=== PATIENT | female | born 1965 | race Caucasian/White ===

== ENCOUNTER → 2016-12-24 | Outpatient (CLI) | payer MEDICAID ==
[~2016-12-24] MED LIST: ANAPROX DS550 MG PO; ASPIRIN81 M1 PO; B COMPLEX1 EACH PO; CIPRO500 MG PO; DUONEB 3 MG/3 ML3 M1 INH; ESTRACE0.5 MG PO; ESTROGEN PO; HYDROCODONE BIT1 T11 PO; INCIVEK PO; LEVOFLOXACIN500 MG PO; LEVOTHYROXIN0.125 MG PO; LOMOTIL 0.025 M1 TAB PO; MELATONIN5 M1 PO; NAPROSYN500 MG PO; NORCO 5-325 TA1 EACH PO; NORFLEX100 MG PO; OMEPRAZOLE20 MG PO; ORPHENADRINE C100 M1 PO; PEGASYS180 MCG/0. MR; PREDNISONE20 M1 PO; RIBAVIRIN600 MG PO; SYNTHROID0.05 MG PO; VICODIN ES 7501 TAB PO; VITAMIN C1000 M5 PO; VITAMIN D5000 IU PO; ZOFRAN ODT8 MG PO
[2016-12-24 15:34] LABS: FREE T4 1.14 ng/dl (0.76-1.46)
[2016-12-24 15:40] LABS: THYROID STIM HORMONE (HS) 3.12 uIU/ml (0.358-4.75)
== END | disposition home or self-care (01) ==
LOC: LAB 14:37
PROVIDERS: Internal Medicine
DX: E03.9 Hypothyroidism, unspecified (principal)

== ENCOUNTER → 2017-04-28 | Outpatient (CLI) | payer OTHER ==
--- NOTE | ~2017-04-28 | PF ---
[place], [place] PULMONARY FUNCTION TEST [id number] UN[facility] #: [id number] ROOM: DOCTOR: JA JONES MD,MANUEL BIRTHDATE: [birth year] DOS: 04/28/2017 ORDERED BY: Dr. Carli Payan. HISTORY: The patient recorded as a 52-year-old female, height of 62 inches, weight of 190 pounds with BMI 34.8. The testing was done for assessment of bronchial asthma with symptoms of nonproductive cough and rare wheezing. The patient noted 30-pack years of tobacco use for this patient that was discontinued 6 years ago. SPIROMETRY: The FVC was recorded at 2.49 liters, 78% predicted value, mildly decreased without any significant post-bronchodilator improvement. The FEV1 was noted 2.09 liters at 83% predicted value normal. The patient without significant postbronchodilator improvement. Flow volume loop was suggestive of obstructive airway pattern. The patient's lung volumes, thoracic gas volume recorded 70%, residual volume 74%, total lung capacity 87%. Lung volumes were noted normal. The patient's lung diffusion was noted normal at 103%. The patient's airway resistance, passive conductance were noted abnormal with partial improvement after bronchodilator test. FINAL IMPRESSION: The test was noted suggestive of reversible obstructive lung disease as bronchial asthma would be considered. MANUEL PERES MD CM:PFREPORT:PULMONARY FUNCTION TEST [id number] MANUEL JONES MD
== END | disposition home or self-care (01) ==
LOC: CP 08:18
DX: J45.909 Unspecified asthma, uncomplicated (principal)

== ENCOUNTER → 2018-06-17 | Outpatient (CLI) | payer BC ==
[2018-06-17 17:03] LABS: BASO % 0.5 % (0.0-1.0); EOS # 0.1 10*3/uL (0.0-0.4); EOS % 1.7 % (1.0-4.0); HEMATOCRIT 40.6 % (37.0-47.0); HEMOGLOBIN 13.9 g/dl (12.0-16.0); LYMPH # 2.3 10*3/uL (1.3-4.4); LYMPH % 39.7 % (27.0-41.0); MEAN CORPUSCULAR HGB 29.4 pg (27.0-31.0); MEAN CORPUSCULAR HGB CONC 34.2 g/dl (33.0-37.0); MONO # 0.5 10*3/uL (0.1-1.0); MONO % 8.8 % (3.0-9.0); NEUT # 2.9 10*3/uL (2.3-7.9); NEUT % 49.1 % (47.0-73.0); PLATELET COUNT AUTOMATED 253 10*3/uL (130-400); RED BLOOD COUNT 4.72 10*6/uL (4.10-5.10); WHITE BLOOD COUNT 5.9 10*3/uL (4.8-10.8)
[2018-06-17 17:19] LABS: ALBUMIN 3.8 gm/dl (3.1-4.5); ALKALINE PHOSPHATASE 95 U/L (45-117); BUN 12 mg/dl (7-24); CHLORIDE 105 mmol/L (98-107); CHOLESTEROL 221 mg/dL (<200); CREATININE 0.75 mg/dL (0.55-1.02); HDL CHOLESTEROL 41 mg/dl (40-60); LDL CHOLESTEROL 118 mg/dL (9-159); POTASSIUM 3.9 mmol/L (3.5-5.1); SGOT/AST 23 IU/L (3-35); SGPT/ALT 27 U/L (12-78); SODIUM 140 mmol/L (136-145); TOTAL PROTEIN 8.1 gm/dL (6.4-8.2); TRIGLYCERIDES 308 mg/dl (<150); VLDL CHOLESTEROL 62 mg/dL (6-40)
[2018-06-17 17:40] LABS: VITAMIN D, 25-HYDROXY 25.1 ng/mL (30-100)
== END ==
LOC: LAB 16:04
PROVIDERS: Internal Medicine
DX: J44.1 Chronic obstructive pulmonary disease with (acute) exacerbation (principal); J98.01 Acute bronchospasm; B18.2 Chronic viral hepatitis C; E78.1 Pure hyperglyceridemia; R73.9 Hyperglycemia, unspecified; E03.9 Hypothyroidism, unspecified; K74.60 Unspecified cirrhosis of liver; N39.0 Urinary tract infection, site not specified; M15.9 Polyosteoarthritis, unspecified; Z68.33 Body mass index [BMI] 33.0-33.9, adult

== ENCOUNTER → 2018-07-01 | Outpatient (CLI) | payer BC | END | disposition home or self-care (01) | LOC: US 10:30 | DX: R10.11 Right upper quadrant pain (principal); E03.9 Hypothyroidism, unspecified; Z78.0 Asymptomatic menopausal state; Z90.49 Acquired absence of other specified parts of digestive tract; Z85.41 Personal history of malignant neoplasm of cervix uteri; Z86.19 Personal history of other infectious and parasitic diseases; Z90.710 Acquired absence of both cervix and uterus ==

== ENCOUNTER → 2018-07-05 | Outpatient (CLI) | payer BC | END | disposition home or self-care (01) | LOC: MAMMO 16:18 | DX: Z12.31 Encounter for screening mammogram for malignant neoplasm of breast (principal) ==

== ENCOUNTER → 2019-07-28 | Outpatient (CLI) | payer BC, OTHER ==
[2019-07-28 09:17] LABS: BASO % 0.5 % (0.0-1.0); EOS # 0.1 10*3/uL (0.0-0.4); EOS % 1.3 % (1.0-4.0); HEMATOCRIT 41.7 % (37.0-47.0); HEMOGLOBIN 14.2 g/dl (12.0-16.0); LYMPH # 1.8 10*3/uL (1.3-4.4); LYMPH % 29.2 % (27.0-41.0); MEAN CELL VOLUME 87.2 fl (81.0-99.0); MEAN CORPUSCULAR HGB 29.7 pg (27.0-31.0); MEAN CORPUSCULAR HGB CONC 34.1 g/dl (33.0-37.0); MEAN PLATELET VOLUME 11.2 fl (9.6-12.3); MONO # 0.5 10*3/uL (0.1-1.0); MONO % 8.8 % (3.0-9.0); NEUT # 3.7 10*3/uL (2.3-7.9); NEUT % 59.9 % (47.0-73.0); PLATELET COUNT AUTOMATED 254 10*3/uL (130-400); RED BLOOD COUNT 4.78 10*6/uL (4.10-5.10); RED CELL DISTRI WIDTH 11.9 % (0-14.5); WHITE BLOOD COUNT 6.1 10*3/uL (4.8-10.8)
[2019-07-28 09:51] LABS: ALBUMIN 3.9 gm/dl (3.1-4.5); ALKALINE PHOSPHATASE 99 U/L (45-117); BUN 13 mg/dl (7-24); CHLORIDE 107 mmol/L (98-107); CHOLESTEROL 220 mg/dL (<200); CREATININE 0.97 mg/dL (0.55-1.02); FREE T4 1.12 ng/dl (0.76-1.46); HDL CHOLESTEROL 38 mg/dl (40-60); LDL CHOLESTEROL 131 mg/dL (9-159); SGOT/AST 20 IU/L (3-35); SGPT/ALT 32 U/L (12-78); SODIUM 141 mmol/L (136-145); TOTAL PROTEIN 7.8 gm/dL (6.4-8.2); TRIGLYCERIDES 257 mg/dl (<150); VLDL CHOLESTEROL 51 mg/dL (6-40)
[2019-07-28 10:44] LABS: VITAMIN D, 25-HYDROXY 20.7 ng/mL (30-100)
== END | disposition home or self-care (01) ==
LOC: LAB 08:53 → US 09:30
PROVIDERS: Internal Medicine
DX: K76.0 Fatty (change of) liver, not elsewhere classified (principal); E03.9 Hypothyroidism, unspecified

== ENCOUNTER → 2019-10-03 | Outpatient (CLI) | payer BC, OTHER | END | disposition home or self-care (01) | LOC: RAD 13:29 | DX: M54.5 Low back pain (principal); M25.552 Pain in left hip; R06.02 Shortness of breath ==

== ENCOUNTER → 2019-10-23 | Outpatient (CLI) | payer BC, OTHER ==
[~2019-10-23] MED LIST changes: +Motrin,Rufen800 MG PO; +TYLENOL EXTRA500 M2 PO; +VITAMIN D10000 UNIT PO; -VITAMIN D5000 IU PO
== END | disposition home or self-care (01) ==
LOC: RAD 11:47
DX: M47.812 Spondylosis without myelopathy or radiculopathy, cervical region (principal); M47.814 Spondylosis without myelopathy or radiculopathy, thoracic region

== ENCOUNTER 2019-10-24 13:51 | Inpatient (IN) | payer BC, OTHER ==
[~2019-10-24] VITALS: Ht 157.5 cm; Wt 90.7 kg
[~2019-10-24 13:51] MED LIST changes: -Motrin,Rufen800 MG PO; -TYLENOL EXTRA500 M2 PO
[2019-10-24 14:00] VITALS: BP 135/95
--- NOTE | 2019-10-24 14:00 | NUR ---
A 54, admitted to , under the services of CHAUNCEY Wiley MD with a diagnosis of CHEST PAIN. Chief complaint is CHEST PAIN. Patient arrived via bed from [place]. Monitor applied. Initial assessment completed. Vital signs taken and recorded. CHAUNCEY WILEY MD notified of admission to the unit. Orders received. See assessment for past medical history, medications and allergies. Patient and/or family oriented to unit. [address] visitation policy reviewed. Clothing/patient valuable form completed. IFTIKHAR MORTENSEN
[2019-10-24 14:52] VITALS: BP 135/95
[2019-10-24] MEDS ORDERED: Motrin,Rufen800 MG PO (15:35)
[2019-10-24] MEDS ORDERED: TYLENOL EXTRA500 M2 PO (15:36)
[2019-10-24 16:00] VITALS: BP 129/61
--- NOTE | 2019-10-24 16:00 | NUR ---
DR. VALLES CALLED. ORDERS TAKEN AND REVIEWED.
--- NOTE | 2019-10-24 16:25 | NUR ---
IV started left hand with #22 angiocath after 1 attempts. The IV site was prepped with Chloraprep. Heparin lock attached. Sterile dressing applied. Patient tolerated precedure well. Procedure performed according to [facility] policy & procedure. IFTIKHAR MORTENSEN
[2019-10-24 16:32] LABS: BASO % 0.3 % (0.0-1.0); EOS # 0.2 10*3/uL (0.0-0.4); EOS % 1.8 % (1.0-4.0); HEMATOCRIT 42.7 % (37.0-47.0); HEMOGLOBIN 14.5 g/dl (12.0-16.0); LYMPH # 3.3 10*3/uL (1.3-4.4); MEAN CELL VOLUME 87.7 fl (81.0-99.0); MEAN CORPUSCULAR HGB 29.8 pg (27.0-31.0); MEAN PLATELET VOLUME 11.1 fl (9.6-12.3); MONO # 0.7 10*3/uL (0.1-1.0); NEUT # 4.5 10*3/uL (2.3-7.9); NEUT % 51.7 % (47.0-73.0); PLATELET COUNT AUTOMATED 265 10*3/uL (130-400); RED BLOOD COUNT 4.87 10*6/uL (4.10-5.10); RED CELL DISTRI WIDTH 11.9 % (0-14.5); WHITE BLOOD COUNT 8.8 10*3/uL (4.8-10.8)
[2019-10-24 16:47] LABS: ALBUMIN 4.1 gm/dl (3.1-4.5); ALKALINE PHOSPHATASE 102 U/L (45-117); BUN 12 mg/dl (7-24); CHLORIDE 104 mmol/L (98-107); CREATININE 0.95 mg/dL (0.55-1.02); POTASSIUM 3.8 mmol/L (3.5-5.1); SGOT/AST 20 IU/L (3-35); SGPT/ALT 29 U/L (12-78); SODIUM 139 mmol/L (136-145); TOTAL PROTEIN 8.2 gm/dL (6.4-8.2)
--- NOTE | 2019-10-24 17:40 | NUR ---
DR. HAI VARMA OF LABS AND CXR. CTA ORDERED.
--- NOTE | 2019-10-24 17:45 | NUR ---
IV started right forearm with #22 angiocath after 1 attempts. The IV site was prepped with Chloraprep. Heparin lock attached. Sterile dressing applied. Patient tolerated precedure well. Procedure performed according to [facility] policy & procedure. IFTIKHAR MORTENSEN
[2019-10-24 20:00] VITALS: BP 122/78
--- NOTE | 2019-10-24 21:01 | NUR ---
CALLED DR. VALLES AND NOTIFIED OF CTA CHEST RESULTS. NEGATIVE FOR PE. ORDER TO SCHEDULE TREAD MILL STRESS TEST AT 8 AM AND REGULAR DIET
[2019-10-25] VITALS: BP 114/61
--- NOTE | 2019-10-25 06:31 | NUR ---
AWAKE. REFUSED TORADOL.
[2019-10-25 07:15] VITALS: BP 118/78
--- NOTE | 2019-10-25 07:15 | NUR ---
ASSESSMENT COMPLETED AND DOCUMENTED. PT SITTING UP IN BED AND IS PLEASANT AND COOPERATIVE, FOLLOWS COMMANDS WELL. C/O LUNG PAIN WHEN COUGHING BUT DENIES THE NEED FOR ANY PAIN MEDICINE. CALL LIGHT IN REACH. BITA SPMYAHCC
--- NOTE | 2019-10-25 08:40 | NUR ---
AMBULATORY TO BATHROOM AND BACK TO BED. IVF INFUSING WITH NO PROBLEM. LUNGS DIMINSHED T/O. NO C/O AT THIS TIME. HARSH NONPROD COUGH NOTED. STUDENT NURSES WITH PT TODAY. CALL LIGHT IN REACH. WILL CON'T TO MONITOR.
--- NOTE | 2019-10-25 09:00 | NUR ---
Head Of Data in to talk to patient. Patient states lives at home with her 11 yo grandson. There are 0 steps in the home. Physician: Dr. Carli Payan [facility]: none Patient's level of ADLs: INDEPENDENT Patient has working utilities: yes DME: nebulizer Follow-up physician's appointment after d/c: she prefers to make her own follow up appt after discharge Does patient want to access PORTAL?: no Discharge plan discussed with patient. She lives at home with her 11 yo grandson who is currently with his father. She is independent in her ADLs and ambulation. Discussed home health care services and she denies any home needs at this time. When medically stable she will be discharged to home. She drove herself here and will drive herself home. She is having a stress test today. MENDEZ GASTELUM
--- NOTE | 2019-10-25 09:18 | NUR ---
OFF FLOOR FOR STRESS TEST VIA TRANSPORT. BITA RUVALCABA
--- NOTE | 2019-10-25 09:47 | NUR ---
PT REMAINS OFF FLOOR AT THIS TIME. BITA GOMEZCC
--- NOTE | 2019-10-25 10:13 | NUR ---
Not available for echo. Off the floor for other testing.
--- NOTE | 2019-10-25 10:45 | NUR ---
INFORMED CONSENT OBTAINED FOR EXERCISE CARDIOLITE STRESS TEST WITH DR. STRICKLAND. RESTING EKG NSR WITH A SUPINE HR OF 72 WITH BP OF 118/68 AND HR OF 75 WITH BP OF 118/72 IN STANDING POSITION. PT COMPLETED 6:00 OF A LUIGI PROTOCOL WITH COMPLETION OF STAGE II AT 2.5 MPH AND 12% GRADE. REACHED A PEAK HR OF 139 WHICH IS 85% OF PREDICTED MAX WITH A PEAK BP OF 140/58. HAD NO CHEST PAIN OR ANY EKG CHANGES. TEST TERMINATED BECAUSE OF FATIGUE AND SHORTNESS OF BREATH. HAS AN AVERAGE EXERCISE TOLERANCE. LAST RECOVERY HR OF 94 WITH BP OF 126/74. AWAITING SCANNING IN STABLE CONDITION.
[2019-10-25 11:46] VITALS: BP 122/75
--- NOTE | 2019-10-25 11:46 | NUR ---
ASSESSMENT COMPLETED AND DOCUMENTED. PT BACK TO FLOOR FROM STRESS TEST. PLEASANT AND COOPERATIVE AND SITTING ON THE SIDE OF THE BED ORDERING LUNCH. PT C/O PAIN AT THE SITE OF THE IV IN THE RIGHT ARM. IV WAS D/C AND CATH WAS INTACT. PT TOLERATED WELL. CALL LIGHT IN REACH. BITA MYAHCC
--- NOTE | 2019-10-25 13:15 | NUR ---
PT SITTING IN BED CONVERSATING WITH ROOMMATE. NO COMPLAINTS AT THIS TIME. CALL LIGHT IN REACH. REPORT GIVEN TO RNCHRIS. SUNSHINE SPNRCC
--- NOTE | 2019-10-25 14:26 | NUR ---
Discharge instructions reviewed with patient/family. Patient receptive and verbalizes understanding. Follow-up care arranged. Written instructions given to patient/family. HEPLOCK REMOVED 2X2X APPLIED. MONITOR REMOVED. IFTIKHAR MORTENSEN
== END 2019-10-25 14:34 | disposition home or self-care (01) | DRG 282 ==
LOC: 4E 13:51
PROVIDERS: ADMIT Internal Medicine
PROC: 4A02XM4 Measurement of Cardiac Total Activity, External Approach (ICD-10-PCS; principal; 2019-10-25)
DX: I21.9 Acute myocardial infarction, unspecified (principal); E03.9 Hypothyroidism, unspecified; E78.2 Mixed hyperlipidemia; Z88.5 Allergy status to narcotic agent

== ENCOUNTER → 2020-10-31 | Outpatient (CLI) | payer BC, OTHER ==
[~2020-10-31] MED LIST changes: +Motrin,Rufen800 MG PO; +TYLENOL EXTRA500 M2 PO
== END | disposition home or self-care (01) ==
LOC: RAD 13:30
PROVIDERS: ATTEND Internal Medicine
DX: M85.852 Other specified disorders of bone density and structure, left thigh (principal); N95.8 Other specified menopausal and perimenopausal disorders; Z78.0 Asymptomatic menopausal state

== ENCOUNTER 2021-03-23 12:26 | Emergency (ER) | payer BC, OTHER ==
[~2021-03-23] VITALS: Ht 157.4 cm; Wt 92.1 kg
== END 2021-03-23 13:39 | disposition short-term general hospital (02) ==
LOC: ED 12:26
DX: H33.21 Serous retinal detachment, right eye (principal); Z90.710 Acquired absence of both cervix and uterus; Z79.899 Other long term (current) drug therapy; Z88.5 Allergy status to narcotic agent

== ENCOUNTER → 2021-11-12 | Outpatient (CLI) | payer BC, OTHER | END | disposition home or self-care (01) | LOC: RAD 17:39 | PROVIDERS: ATTEND Preventive Medicine Occupational Medicine | DX: R07.81 Pleurodynia (principal); M25.511 Pain in right shoulder ==

== ENCOUNTER → 2022-03-04 | Outpatient (CLI) | payer BC, OTHER ==
[2022-03-04 16:57] LABS: BASO % 0.6 % (0.0-1.0); EOS # 0.1 10*3/uL (0.0-0.4); EOS % 2.1 % (1.0-4.0); HEMATOCRIT 38.1 % (37.0-47.0); LYMPH # 2.2 10*3/uL (1.3-4.4); LYMPH % 32.9 % (27.0-41.0); MEAN CELL VOLUME 86.8 fl (81.0-99.0); MEAN CORPUSCULAR HGB 30.1 pg (27.0-31.0); MEAN CORPUSCULAR HGB CONC 34.6 g/dl (33.0-37.0); MONO # 0.6 10*3/uL (0.1-1.0); MONO % 8.9 % (3.0-9.0); NEUT # 3.7 10*3/uL (2.3-7.9); NEUT % 55.2 % (47.0-73.0); PLATELET COUNT AUTOMATED 271 10*3/uL (130-400); RED BLOOD COUNT 4.39 10*6/uL (4.10-5.10); RED CELL DISTRI WIDTH 12.3 % (0-14.5); WHITE BLOOD COUNT 6.7 10*3/uL (4.8-10.8)
[2022-03-04 17:19] LABS: CREATININE 1.26 mg/dL (0.55-1.02); POTASSIUM 4.3 mmol/L (3.5-5.1); THYROXINE (T4) TOTAL 9.9 ug/dl (4.8-13.9); TOTAL PROTEIN 7.5 gm/dL (6.4-8.2)
[2022-03-04 17:24] LABS: THYROID STIM HORMONE (HS) 2.48 uIU/ml (0.358-4.75)
== END | disposition home or self-care (01) ==
LOC: LAB 16:40
PROVIDERS: ATTEND Internal Medicine
DX: Z00.00 Encounter for general adult medical examination without abnormal findings (principal); E55.9 Vitamin D deficiency, unspecified; I10 Essential (primary) hypertension; E78.5 Hyperlipidemia, unspecified; E78.2 Mixed hyperlipidemia

== ENCOUNTER → 2022-03-24 | Outpatient (CLI) | payer BC, OTHER | END | disposition home or self-care (01) | LOC: US 13:30 | PROVIDERS: ATTEND Internal Medicine | DX: R94.4 Abnormal results of kidney function studies (principal) ==

== ENCOUNTER → 2022-04-14 | Outpatient (CLI) | payer BC, OTHER | END | disposition home or self-care (01) | LOC: MAMMO 15:37 | PROVIDERS: ATTEND Nurse Practitioner | DX: Z12.31 Encounter for screening mammogram for malignant neoplasm of breast (principal) ==

== ENCOUNTER → 2022-12-21 | Outpatient (CLI) | payer BC, OTHER ==
[2022-12-21 09:11] LABS: BUN 15 mg/dl (9-23); CHLORIDE 105 mmol/L (98-107); CHOLESTEROL 187 mg/dL (<200); LDL CHOLESTEROL 102 mg/dL (9-159); TRIGLYCERIDES 185 mg/dl (<150)
== END | disposition home or self-care (01) ==
LOC: LAB 08:18
PROVIDERS: Internal Medicine; ATTEND Otolaryngology
DX: Z01.818 Encounter for other preprocedural examination (principal); R79.89 Other specified abnormal findings of blood chemistry; E78.5 Hyperlipidemia, unspecified

== ENCOUNTER 2023-02-18 19:42 | Emergency (ER) | payer BC, OTHER ==
[~2023-02-18] VITALS: Ht 157.4 cm; Wt 90.7 kg
[2023-02-18] MEDS ORDERED: ASPIRIN CHILDRE81 MG PO (20:33)
[2023-02-18] MEDS ORDERED: TOPROL XL25 MG PO (20:33)
[2023-02-18] MEDS ORDERED: DULOXETINE HCL20 MG PO (20:34)
[2023-02-18] MEDS ORDERED: ATORVASTATIN CA20 M1 PO (20:34)
== END 2023-02-18 22:10 | disposition home or self-care (01) ==
LOC: ED 19:42
DX: S93.402A Sprain of unspecified ligament of left ankle, initial encounter (principal); K21.9 Gastro-esophageal reflux disease without esophagitis; Z88.5 Allergy status to narcotic agent; Z90.710 Acquired absence of both cervix and uterus; Z90.49 Acquired absence of other specified parts of digestive tract; Z98.890 Other specified postprocedural states; Z98.49 Cataract extraction status, unspecified eye; W01.0XXA Fall on same level from slipping, tripping and stumbling without subsequent striking against object, initial encounter; Y93.89 Activity, other specified; Y92.89 Other specified places as the place of occurrence of the external cause; Y99.8 Other external cause status

== ENCOUNTER → 2023-07-02 | Outpatient (CLI) | payer BC, OTHER ==
[~2023-07-02] MED LIST changes: +ASPIRIN CHILDRE81 MG PO; +ATORVASTATIN CA20 M1 PO; +DULOXETINE HCL20 MG PO; +TOPROL XL25 MG PO
== END | disposition home or self-care (01) ==
LOC: US 13:00 → RAD 14:00
PROVIDERS: ATTEND Internal Medicine
DX: I65.23 Occlusion and stenosis of bilateral carotid arteries (principal); M81.0 Age-related osteoporosis without current pathological fracture; R42 Dizziness and giddiness; Z78.0 Asymptomatic menopausal state

== ENCOUNTER 2023-10-03 12:08 | Emergency (ER) | payer BC, OTHER ==
[~2023-10-03] VITALS: Ht 157.4 cm; Wt 92.1 kg
[2023-10-03 12:51] LABS: BASO % 0.2 % (0.0-1.0); EOS # 0.1 10*3/uL (0.0-0.4); EOS % 0.6 % (1.0-4.0); HEMATOCRIT 40.5 % (37.0-47.0); LYMPH # 2.3 10*3/uL (1.3-4.4); LYMPH % 22.7 % (27.0-41.0); MEAN CELL VOLUME 86.2 fl (81.0-99.0); MEAN CORPUSCULAR HGB 27.4 pg (27.0-31.0); MEAN CORPUSCULAR HGB CONC 31.9 g/dl (33.0-37.0); MEAN PLATELET VOLUME 10.7 fl (9.6-12.3); MONO # 0.7 10*3/uL (0.1-1.0); MONO % 7.4 % (3.0-9.0); NEUT # 6.8 10*3/uL (2.3-7.9); NEUT % 68.9 % (47.0-73.0); PLATELET COUNT AUTOMATED 235 10*3/uL (130-400); RED CELL DISTRI WIDTH 12.4 % (0-14.5); WHITE BLOOD COUNT 9.9 10*3/uL (4.8-10.8)
[2023-10-03 13:12] LABS: ALKALINE PHOSPHATASE 107 U/L (46-116); BUN 10 mg/dl (9-23); CHLORIDE 103 mmol/L (98-107); CPK 77 U/L (34-171); POTASSIUM 3.6 mmol/L (3.4-5.1); SGPT/ALT 13 U/L (5-49)
[2023-10-03 13:19] LABS: BILIRUBIN Negative (Negative); BLOOD Trace-Lysed (Negative); CLARITY Clear (Clear); COLOR Yellow (Yellow); GLUCOSE Negative (Negative); KETONE Trace (Negative); LEUKO ESTERASE Negative (Negative); NITRITE Negative (Negative); PH 7.5 (4.5-8.0); SPECIFIC GRAVITY 1.015 (1.001-1.030); UROBILINOGEN 0.2 E.U./dl (0.0-1.0)
[2023-10-03 13:42] LABS: BACTERIA 1+
== END 2023-10-03 13:55 | disposition home or self-care (01) ==
LOC: ED 12:08
PROVIDERS: Physician Assistant Medical
DX: J06.9 Acute upper respiratory infection, unspecified (principal); Z20.822 Contact with and (suspected) exposure to COVID-19; R11.2 Nausea with vomiting, unspecified; R19.7 Diarrhea, unspecified; J44.9 Chronic obstructive pulmonary disease, unspecified; E78.5 Hyperlipidemia, unspecified; F17.210 Nicotine dependence, cigarettes, uncomplicated; Z88.6 Allergy status to analgesic agent; Z88.5 Allergy status to narcotic agent; Z79.899 Other long term (current) drug therapy; Z79.82 Long term (current) use of aspirin; Z90.711 Acquired absence of uterus with remaining cervical stump; Z90.49 Acquired absence of other specified parts of digestive tract

== ENCOUNTER → 2023-11-02 | Outpatient (CLI) | payer BC, OTHER | END | disposition home or self-care (01) | LOC: RAD 16:48 | PROVIDERS: ATTEND Internal Medicine | DX: M19.041 Primary osteoarthritis, right hand (principal) ==

== ENCOUNTER → 2023-12-08 | Outpatient (CLI) | payer BC, OTHER ==
[2023-12-08 10:48] LABS: BASO % 0.7 % (0.0-1.0); EOS # 0.1 10*3/uL (0.0-0.4); EOS % 1.2 % (1.0-4.0); HEMATOCRIT 37.8 % (37.0-47.0); LYMPH # 1.6 10*3/uL (1.3-4.4); LYMPH % 28.2 % (27.0-41.0); MEAN CELL VOLUME 84.4 fl (81.0-99.0); MEAN CORPUSCULAR HGB 27.5 pg (27.0-31.0); MEAN CORPUSCULAR HGB CONC 32.5 g/dl (33.0-37.0); MEAN PLATELET VOLUME 10.6 fl (9.6-12.3); MONO # 0.6 10*3/uL (0.1-1.0); MONO % 10.5 % (3.0-9.0); NEUT # 3.4 10*3/uL (2.3-7.9); NEUT % 59.2 % (47.0-73.0); PLATELET COUNT AUTOMATED 225 10*3/uL (130-400); RED BLOOD COUNT 4.48 10*6/uL (4.10-5.10); WHITE BLOOD COUNT 5.7 10*3/uL (4.8-10.8)
[2023-12-08 11:27] LABS: ALKALINE PHOSPHATASE 102 U/L (46-116); BUN 11 mg/dl (9-23); CHLORIDE 103 mmol/L (98-107); CHOLESTEROL 134 mg/dL (<200); FREE T4 1.17 ng/dl (0.89-1.76); LDL CHOLESTEROL 63 mg/dL (9-159); POTASSIUM 4.1 mmol/L (3.4-5.1); SGPT/ALT 12 U/L (5-49); TOTAL PROTEIN 7.5 gm/dL (6.0-8.0); TRIGLYCERIDES 143 mg/dl (<150)
[2023-12-08 12:12] LABS: VITAMIN D, 25-HYDROXY 35.1 ng/mL (30-100)
[2023-12-09 11:08] LABS: ANTI-DSDNA ANTIBODIES <1 IU/mL (0-9)
[2023-12-09 12:08] LABS: CCP ANTIBODIES IGG/IGA 7 units (0-19)
== END ==
LOC: LAB 10:21
PROVIDERS: ATTEND Internal Medicine
DX: Z13.0 Encounter for screening for diseases of the blood and blood-forming organs and certain disorders involving the immune mechanism (principal); Z13.1 Encounter for screening for diabetes mellitus; Z13.21 Encounter for screening for nutritional disorder; Z13.220 Encounter for screening for lipoid disorders; Z13.228 Encounter for screening for other metabolic disorders; Z13.29 Encounter for screening for other suspected endocrine disorder; Z13.6 Encounter for screening for cardiovascular disorders; Z13.89 Encounter for screening for other disorder; I10 Essential (primary) hypertension; E78.2 Mixed hyperlipidemia; E03.9 Hypothyroidism, unspecified; E55.9 Vitamin D deficiency, unspecified

== ENCOUNTER → 2024-04-10 | Outpatient (CLI) | payer BC, OTHER ==
[2024-04-10 11:04] LABS: BASO % 0.4 % (0.0-1.0); EOS # 0.2 10*3/uL (0.0-0.4); EOS % 2.4 % (1.0-4.0); HEMATOCRIT 36.6 % (37.0-47.0); LYMPH % 23.5 % (27.0-41.0); MEAN CELL VOLUME 86.9 fl (81.0-99.0); MEAN CORPUSCULAR HGB 27.8 pg (27.0-31.0); MEAN PLATELET VOLUME 10.9 fl (9.6-12.3); MONO # 0.7 10*3/uL (0.1-1.0); MONO % 8.2 % (3.0-9.0); NEUT # 5.5 10*3/uL (2.3-7.9); NEUT % 65.1 % (47.0-73.0); PLATELET COUNT AUTOMATED 222 10*3/uL (130-400); RED BLOOD COUNT 4.21 10*6/uL (4.10-5.10); RED CELL DISTRI WIDTH 13.4 % (0-14.5); WHITE BLOOD COUNT 8.4 10*3/uL (4.8-10.8)
[2024-04-10 11:40] LABS: ALKALINE PHOSPHATASE 100 U/L (46-116); BUN 17 mg/dl (9-23); CHLORIDE 107 mmol/L (98-107); CHOLESTEROL 150 mg/dL (<200); FREE T4 1.06 ng/dl (0.89-1.76); LDL CHOLESTEROL 69 mg/dL (9-159); POTASSIUM 4.1 mmol/L (3.4-5.1); SGPT/ALT 10 U/L (5-49); TOTAL PROTEIN 7.2 gm/dL (6.0-8.0); TRIGLYCERIDES 202 mg/dl (<150)
[2024-04-10 11:41] LABS: VITAMIN D, 25-HYDROXY 43.4 ng/mL (30-100)
[2024-04-11 09:08] LABS: ANTI-DSDNA ANTIBODIES <1 IU/mL (0-9)
[2024-04-11 14:08] LABS: CCP ANTIBODIES IGG/IGA 14 units (0-19)
== END | disposition home or self-care (01) ==
LOC: LAB 10:37
PROVIDERS: ATTEND Internal Medicine
DX: M25.561 Pain in right knee (principal); R07.9 Chest pain, unspecified; R05.9 Cough, unspecified; I10 Essential (primary) hypertension; Z79.899 Other long term (current) drug therapy; Z79.891 Long term (current) use of opiate analgesic

== ENCOUNTER → 2024-10-25 | Outpatient (CLI) | payer BC, OTHER ==
[2024-10-25 12:07] LABS: BASO % 0.5 % (0.0-1.0); EOS # 0.1 10*3/uL (0.0-0.4); EOS % 1.6 % (1.0-4.0); HEMATOCRIT 38.8 % (37.0-47.0); MEAN CELL VOLUME 82.2 fl (81.0-99.0); MEAN CORPUSCULAR HGB 27.8 pg (27.0-31.0); MEAN CORPUSCULAR HGB CONC 33.8 g/dl (33.0-37.0); MEAN PLATELET VOLUME 10.9 fl (9.6-12.3); MONO # 0.5 10*3/uL (0.1-1.0); MONO % 7.3 % (3.0-9.0); NEUT # 4.4 10*3/uL (2.3-7.9); NEUT % 61.1 % (47.0-73.0); PLATELET COUNT AUTOMATED 270 10*3/uL (130-400); RED BLOOD COUNT 4.72 10*6/uL (4.10-5.10); RED CELL DISTRI WIDTH 13.4 % (0-14.5); WHITE BLOOD COUNT 7.3 10*3/uL (4.8-10.8)
[2024-10-25 12:52] LABS: ALKALINE PHOSPHATASE 107 U/L (46-116); BUN 16 mg/dl (9-23); CHLORIDE 102 mmol/L (98-107); CHOLESTEROL 161 mg/dL (<200); FREE T4 1.42 ng/dl (0.89-1.76); LDL CHOLESTEROL 93 mg/dL (9-159); POTASSIUM 3.8 mmol/L (3.4-5.1); SGPT/ALT 10 U/L (5-49); TOTAL PROTEIN 7.9 gm/dL (6.0-8.0); TRIGLYCERIDES 125 mg/dl (<150)
[2024-10-25 12:54] LABS: VITAMIN D, 25-HYDROXY 39.6 ng/mL (30-100)
[2024-10-26 12:07] LABS: ANTI-DSDNA ANTIBODIES <1 IU/mL (0-9)
[2024-10-26 14:07] LABS: CCP ANTIBODIES IGG/IGA 14 units (0-19)
== END | disposition home or self-care (01) ==
LOC: LAB 11:35
PROVIDERS: ATTEND Internal Medicine
DX: M19.041 Primary osteoarthritis, right hand (principal); M19.042 Primary osteoarthritis, left hand; M25.841 Other specified joint disorders, right hand; I10 Essential (primary) hypertension; E78.2 Mixed hyperlipidemia; E03.9 Hypothyroidism, unspecified; M79.10 Myalgia, unspecified site; M17.0 Bilateral primary osteoarthritis of knee; M85.9 Disorder of bone density and structure, unspecified; R79.82 Elevated C-reactive protein (CRP); M25.50 Pain in unspecified joint; G89.29 Other chronic pain; M79.641 Pain in right hand; M79.642 Pain in left hand